=== PATIENT | male | born 1965 | race Caucasian/White ===

== ENCOUNTER 2023-10-22 10:26 | Observation (INO) | payer OTHER ==
[2023-10-22] VITALS (7 sets, daily range): BP systolic 112–133; BP diastolic 75–90
[~2023-10-22] VITALS: Ht 185.4 cm; Wt 81.7 kg
[2023-10-22] MEDS ORDERED: Vancomycin HCL 1,000 MG in NS 110 ML IV ONE (10:50)
[2023-10-22] MEDS ORDERED: Ampicillin Sod/Sulbactam Sod 1.5 GM in NS 100 ML IV ONE (10:50)
[2023-10-22] MEDS ORDERED: Ketorolac Tromethamine 30mg Vial IV ONE (10:50)
[2023-10-22 11:04] LABS: BASOPHILS ABSOLUTE AUTO 0.08 K/mm3 (0.00-0.23); BASOPHILS PERCENT AUTO 1 % (0-2); EOSINOPHILS ABSOLUTE AUTO 0.02 K/mm3 (0.00-0.68); EOSINOPHILS PERCENT AUTO 0 % (0-6); Hematocrit 42.2 % (37.0-53.0); Hemoglobin 14.7 g/dL (13.5-17.5); IMMATURE GRAN ABSOLUTE AUTO 0.07 K/mm3 (0.00-0.10); IMMATURE GRAN PERCENT AUTO 0 % (0-1); LYMPHOCYTES ABSOLUTE AUTO 1.19 K/mm3 (0.84-5.20); LYMPHOCYTES PERCENT AUTO 7 % (21-46); MONOCYTES ABSOLUTE AUTO 0.81 K/mm3 (0.16-1.47); MONOCYTES PERCENT AUTO 5 % (4-13); Mean Corpuscular HGB 30.6 pg (26.0-34.0); Mean Corpuscular HGB Conc 34.8 g/dL (31.5-36.5); Mean Corpuscular Volume 88 fL (80-100); Mean Platelet Volume 9.4 fL (9.1-12.4); NEUTROPHILS ABSOLUTE AUTO 14.35 K/mm3 (1.96-9.15); NEUTROPHILS PERCENT AUTO 87 % (41-73); Platelet Count 262 K/mm3 (150-400); RDW Coefficient Variation 12.6 % (11.7-14.2); RDW Standard Deviation 40.9 fL (35.1-46.3); White Blood Cell Count 16.52 K/mm3 (4.00-11.30)
[2023-10-22 11:52] LABS: Albumin, Blood 3.6 g/dL (3.4-5.0); Albumin/Globulin Ratio 0.9 (0.8-1.8); Bilirubin, Total 1.4 mg/dL (0.1-1.0); Bun/Creatinine Ratio 16.8 (12.0-20.0); Calcium, Blood 8.8 mg/dL (8.5-10.1); Creatinine, Blood 1.01 mg/dL (0.60-1.20); Globulin, Blood 4.1 g/dL (2.2-4.0); Potassium, Blood 4.2 mmol/L (3.5-5.5); Total Protein, Blood 7.7 g/dL (6.4-8.2)
[2023-10-22] MEDS ORDERED: Lactated Ringer's 1,000 ML IV SCH (12:25)
[2023-10-22] MEDS ORDERED: Bupivacaine 0.5% HCl 5 MG/ML 30MLVIAL ONE (13:04)
[2023-10-22] MEDS ORDERED: FentaNYL Citrate 50 MCG/ML 2 ML Injection ONE (13:46)
[2023-10-22] MEDS ORDERED: propofoL 20 ML IV ONE (13:46)
[2023-10-22] MEDS ORDERED: Ketorolac Tromethamine 30mg Vial ONE (13:50)
[2023-10-22] MEDS ORDERED: Ondansetron HCl 2 MG / ML 2ML Vial ONE (13:50)
[2023-10-22] MEDS ORDERED: EpiNEPhrine 1 MG/1 ML 1ML Vial ONE (14:02)
--- NOTE | 2023-10-22 15:38 | NUR ---
Discharge instructions reviewed with patient. Patient verbalizes understanding. Copy given to patient to take home. 2 prescriptions placed in pt's discharge folder. Patient States Post-Procedure ride home has been arranged. Discharged via wheelchair to private car for ride home.
== END 2023-10-22 15:38 | disposition home or self-care (01) ==
LOC: ER 10:26 → SURS 10:27
PROVIDERS: Student in an Organized Health Care Education/Training Program; ADMIT Orthopaedic Surgery Sports Medicine
PROC: 0LB80ZZ Excision of Left Hand Tendon, Open Approach (ICD-10-PCS; principal; 2023-10-22 13:45)
DX: L08.9 Local infection of the skin and subcutaneous tissue, unspecified (principal)
CPT/HCPCS: 73140; 80053; 83036; 83605; 85025; 85651; 86140; 87040; 87070; 87075; 87077; 87147; 87186; 87205; 96365; 96367; 96375; 99285-25; J0171; J0295; J1885; J2405; J2704; J3010; J3370; J7120